=== PATIENT | male | born 1960 | race Caucasian/White ===

== ENCOUNTER 2022-12-19 08:39 | Observation (INO) | payer OTHER ==
[~2022-12-19] VITALS: Ht 182.9 cm; Wt 98.7 kg
[2022-12-19 09:17] LABS: BASOPHILS % (AUTO) 0.9 % (0.0-5.0); EOSINOPHILS % (AUTO) 8.6 % (0.0-8.0); HEMATOCRIT 50.1 % (42-54); MEAN CORPUSCULAR HEMOGLOBIN 31.2 pg (27.0-33.0); MEAN CORPUSCULAR HGB CONC 33.5 g/dL (32.0-36.0); MEAN CORPUSCULAR VOLUME 93.1 fL (79-99); MONOCYTES % (AUTO) 7.3 % (3.0-13.0); PLATELET COUNT (AUTO) 305 K/uL (130-400); RED BLOOD CELL COUNT(AUTO) 5.38 MIL/uL (4.50-6.20); RED CELL DISTRIBUTION WIDTH 12.7 % (11.0-15.5); WHITE BLOOD COUNT (AUTO) 8.1 K/uL (4.8-10.8)
[2022-12-19 09:24] LABS: POTASSIUM 3.8 mmol/L (3.5-5.1)
[2022-12-19 09:29] LABS: ALBUMIN 3.6 g/dL (3.5-5.0); TOTAL PROTEIN, SERUM 7.3 g/dL (6.0-8.3)
[2022-12-19 09:49] LABS: B-TYPE NATRIURETIC PEPTIDE 51 pg/mL (0-100)
[2022-12-19] MEDS ORDERED: BUDESONIDE 0.5 MG/2 ML INH IH ONE (09:55)
[2022-12-19] MEDS ORDERED: IPRATROPIUM/ALBUTEROL SULFATE 3 ML SOLUTION IH ONE ×2 (10:00→21:30)
[2022-12-19] MEDS ORDERED: SOLU-MEDROL 125MG VIAL IVP ONE (10:00)
[2022-12-19 12:18] LABS: ABG BASE EXCESS 0.6 mmol/L (-2.0-3.0); ABG HCO3 25.4 mmol/L (21.0-28.0); ABG OXYGEN SATURATION 92.4 % (95.0-99.0); ABG PCO2 42 mmHg (35-48)
[2022-12-19] MEDS ORDERED: ZOSYN 3.375GM +NS 50ML IVPB SCH (12:30)
[2022-12-19] MEDS: ZOSYN 3.375GM+NS 50ML 50 ML IVPB SCH ×2 (12:31→20:26)
[2022-12-19] MEDS: SOLU-MEDROL 125MG VIAL IV SCH ×2 (12:32→20:26)
[2022-12-19] MEDS ORDERED: 0.9%NACL 50ML IV SCH (13:00)
[2022-12-19 13:02] LABS: INR 0.93 (0.85-1.15); PROTHROMBIN TIME 10.1 SEC (9.6-11.6)
[2022-12-19 13:03] LABS: PARTIAL THROMBOPLASTIN TIME 31.9 SEC (26.3-35.5)
[2022-12-19 13:10] LABS: HEMOGLOBIN A1C 5.5 % (4.0-6.0)
[2022-12-19 14:23] LABS: APPEARANCE,URINE CLOUDY (CLEAR); BILIRUBIN,URINE NEGATIVE (NEGATIVE); COLOR,URINE YELLOW (YELLOW); GLUCOSE, URINE (UA) 30 mg/dL (NEGATIVE); KETONES,URINE NEGATIVE (NEGATIVE); LEUKOCYTE ESTERASE ,URINE NEGATIVE Leu/uL (NEGATIVE); NITRATE,URINE NEGATIVE (NEGATIVE); OCCULT BLOOD,URINE NEGATIVE (NEGATIVE); PROTEIN,URINE 100 mg/dL (NEGATIVE); UROBILINOGEN,URINE 0.2 mg/dL (0.2-1.0)
[2022-12-19] MEDS: IPRATROPIUM/ALBUTEROL SULFATE 3 ML SOLUTION IH SCH ×2 (14:23→19:06)
[2022-12-19 14:41] LABS: BACTERIA,URINE RARE /HPF (None Seen); MUCUS,URINE FEW LPF (None Seen); SQUAMOUS EPITHELIAL CELL,UR RARE /HPF (0-2); YEAST,URINE BUDDING FEW /HPF (None Seen)
[2022-12-19 14:46] VITALS: BP 157/86
[2022-12-19 16:00] VITALS: BP 141/79
[2022-12-19] MEDS ORDERED: AZITHROMYCIN 500MG+NS 250ML IVPB SCH (17:30)
[2022-12-19] MEDS ORDERED: KCL 20 MEQ ERTAB PO PRN (17:30)
[2022-12-19] MEDS ORDERED: POTASSIUM CHLORIDE 10% ELIXIR 20 MEQ/15 ML UDCUP PO PRN (17:30)
[2022-12-19] MEDS ORDERED: POTASSIUM CHLORIDE 20MEQ/100ML 100 ML IV PRN ×2 (17:30)
[2022-12-19] MEDS ORDERED: MAGNESIUM 2GM PREMIX 50ML 50 ML IV PRN (17:30)
[2022-12-19] MEDS: BUDESONIDE 0.5 MG/2 ML INH IH SCH (19:05)
[2022-12-19 20:16] VITALS: BP 154/94
[2022-12-19] MEDS: FAMOTIDINE 20MG TAB PO SCH (20:26)
[2022-12-20 00:24] VITALS: BP 139/92
[2022-12-20 00:25] VITALS: BP 123/63
[2022-12-20 00:27] VITALS: BP 139/92
[2022-12-20] MEDS: IPRATROPIUM/ALBUTEROL SULFATE 3 ML SOLUTION IH SCH ×3 (00:27→11:07)
[2022-12-20 03:47] VITALS: BP 123/86
[2022-12-20] MEDS: ZOSYN 3.375GM+NS 50ML 50 ML IVPB SCH (04:59)
[2022-12-20] MEDS: BUDESONIDE 0.5 MG/2 ML INH IH SCH (06:40)
[2022-12-20 07:20] VITALS: BP 138/93
[2022-12-20] MEDS: FAMOTIDINE 20MG TAB PO SCH (08:22)
[2022-12-20] MEDS: SOLU-MEDROL 125MG VIAL IV SCH (08:23)
[2022-12-20] MEDS ORDERED: ENOXAPARIN SODIUM 40 MG/0.4 ML SYRINGE SQ SCH (09:00)
[2022-12-20 10:46] LABS: HEMATOCRIT 46.9 % (42-54); MEAN CORPUSCULAR HEMOGLOBIN 31.9 pg (27.0-33.0); MEAN CORPUSCULAR HGB CONC 34.1 g/dL (32.0-36.0); MEAN CORPUSCULAR VOLUME 93.6 fL (79-99); RED BLOOD CELL COUNT(AUTO) 5.01 MIL/uL (4.50-6.20); RED CELL DISTRIBUTION WIDTH 12.7 % (11.0-15.5); WHITE BLOOD COUNT (AUTO) 12.1 K/uL (4.8-10.8)
[2022-12-20 10:54] LABS: POTASSIUM 3.7 mmol/L (3.5-5.1)
[2022-12-20 11:10] VITALS: BP 153/88
[2022-12-20] MEDS ORDERED: FLUT1BLS3 IH (13:48)
[2022-12-20] MEDS ORDERED: AMOX1TAB16 PO (13:48)
[2022-12-20] MEDS ORDERED: LORA10TA7 PO (13:48)
[2022-12-20] MEDS ORDERED: PRED20TA3 PO (13:48)
[2022-12-20] MEDS ORDERED: AZIT500T4 PO (13:48)
[2022-12-20] MEDS ORDERED: SOLU-MEDROL 125MG VIAL IV SCH (21:00)
== END 2022-12-20 14:30 | disposition home or self-care (01) ==
LOC: EDH 08:39 → INTOOBSV 11:31 → EDHIP 11:31 → 3DH 14:15
PROVIDERS: ADMIT Internal Medicine; ATTEND Internal Medicine
DX: J96.01 Acute respiratory failure with hypoxia (principal); Z20.822 Contact with and (suspected) exposure to COVID-19; J44.1 Chronic obstructive pulmonary disease with (acute) exacerbation; J44.0 Chronic obstructive pulmonary disease with (acute) lower respiratory infection; J18.9 Pneumonia, unspecified organism; G47.00 Insomnia, unspecified; I10 Essential (primary) hypertension; K59.00 Constipation, unspecified; F17.210 Nicotine dependence, cigarettes, uncomplicated; Z92.3 Personal history of irradiation; Z79.899 Other long term (current) drug therapy; Z86.73 Personal history of transient ischemic attack (TIA), and cerebral infarction without residual deficits; Z85.46 Personal history of malignant neoplasm of prostate
CPT/HCPCS: 99291; 96366 ×2; 93970; 96365; 71046; 96367; 87635; 96375; 96376 ×2; 83036; 84484; 80053; 82803; 83880; 85025; 85610; 85730; 85651; 87071; 87205; 87804 ×2; 86140; 81001; 36415 ×2; 93005; 36600; 84145; 94664; 93306; 96372; 80048; 85027; 85378; 93356; 94640 ×9; 94760 ×2; C9803; J2930 ×3; J2543 ×4; J0456; G0378; J1650